=== PATIENT | male | born 1955 | race Caucasian/White ===

== ENCOUNTER 2016-10-18 18:11 | Emergency (ER) | payer MEDICARE, MEDICAID ==
[~2016-10-18] VITALS: Ht 180.3 cm; Wt 100.0 kg
[~2016-10-18 18:11] MED LIST: METH-313 PO; NAPR500T PO; TRAM50TA2 PO
[2016-10-18 18:17] VITALS: BP 161/106; PULSE 65; RESP 20; O2SAT 99
--- NOTE | 2016-10-18 18:49 | ED.REPORT ---
HPI-General Illness Date of Service October 18, 2016 ED Provider: Dorian Paige MD Patient is a 60 year old male with a history of chronic right leg pain, IV drug and Hepatitis B use who presents to the ED complaining of neck pain onset yesterday. Associated symptoms include right leg swelling. He denies shortness of breath. The patient reports that he is currently homeless. Nursing Notes Stated Complaint: SWOLLEN AND PAINFUL RIGHT LEG, NECK PAIN Chief Complaint: General Complaint Nursing Notes Reviewed: Yes Allergies: Coded Allergies: No Known Allergies (Verified , 10/18/16) Scheduled Methocarbamol (Robaxin-750) 750 Mg Tablet 1,500 MG PO QID Scheduled PRN Naproxen (Naprosyn) 500 Mg Tablet 500 MG PO BID PRN PRN For Pain Tramadol (Tramadol) 50 Mg Tablet 100 MG PO Q6H PRN PRN For Pain General Time Seen by MD: 18:49 Chief Complaint Other (neck pain) Hx Obtained From: Patient Arrived By: Walk-in Sudden in Onset?: Yes Onset Occurred: Yesterday Symptom Duration: Since onset Location: : Neck Recent Healthcare: No recent doctor visit, No recent hospitalization Similar Sx Previous: No Past Medical History Past Medical History TB hiatal hernia bipolar disorder hepatitis B Past Surgical History testicular surgery Family History Reviewed, not relevant Smoking History Current Every Day Smoker Social History Alcohol Use: Denies alcohol use Drug Use: IV drugs, Meth Other Social History: Homeless Ambulatory Status Independent Review of Systems Full Review of Systems Respiratory: Denies: Non-productive cough, Shortness of breath Musculoskeletal: Reports: Extremity pain (right leg), Extremity swelling (both legs), Neck pain Complete sys rev & neg: except as marked. Physical Exam Vital Signs Vital Signs Date Time Temp Pulse Resp B/P Pulse Ox O2 Delivery O2 Flow Rate FiO2 10/18/16 23:09 36.1 98 18 152/97 98 Room Air 10/18/16 18:17 36.4 65 20 161/106 99 Room Air Initial VS: Reviewed General/Constitutional: Well-developed, Well-nourished Head / Eyes: Atraumatic, Normocephalic ENT: Mucous membranes moist General/Constitutional: Awake, Alert Head / Eyes: Atraumatic, Normocephalic, PERRL, EOMI Pharynx / Tonsils / Uvula: Positive: Pharyngeal erythema (difficult to see his posterior oropharynx. There is mild erythema. No stridor, trismus or drooling) Neck: Full range of motion (generalized fullness to the anterior neck. No palpable mass.), No adenopathy tenderness of the posterior and anterior of the neck Respiratory / Chest: Atraumatic, Breath sounds NL, Breath sounds = bilat, No respiratory distress Cardiovascular: Heart rate NL, Regular rhythm, Heart sounds NL Abdomen: Atraumatic, Soft, Non-tender Back: Atraumatic, Full range of motion Upper Extremities Upper Extremity / MS: Atraumatic, Full range of motion LOWER EXTREMITIES: palpable but irregular pulses bilateral pedil edema, right more than left Skin: Atraumatic, Color NL, No rash, Warm, Dry Neurologic: Oriented X3, Speech NL, No motor deficits, No sensory deficits Psychiatric: Affect NL, Mood NL Interpretation & Diagnostics Interpretation & Diagnostics: SOFT TISSUE NECK CT: IMPRESSION: Bilateral, scattered shotty cervical, supraclavicular and superior mediastinal lymph nodes however no pathologic enlargement by size criteria. Recommend clinical correlation. Dictated by: Kody Moses M.D. on 10/18/2016 at 21:03 Approved by: Kody Moses M.D. on 10/18/2016 at 21:[address]: IMPRESSION: No evidence of deep venous thrombosis bilaterally. Dictated by: Kody Moses M.D. on 10/18/2016 at 21:35 Approved by: Kody Moses M.D. on 10/18/2016 at 21:36 Lab Results Interpretation Result Diagram: 10/18/16193710/18/161937 Test 10/18/16 19:38 10/18/16 19:48 White Blood Count 6.6th/mm3 (3.8-10.1) Red Blood Count 4.82mil/mm3 (4.40-5.80) Hemoglobin 14.8g/dL (13.8-17.2) Hematocrit 43.3% (41.0-50.0) Mean Corpuscular Volume 89.8fL (81-100) Mean Corpuscular Hemoglobin 30.7pg (27.0-35.0) Mean Corpuscular Hemoglobin Concent 34.2% (32.0-37.0) Red Cell Distribution Width 13.2% (12.3-15.4) Platelet Count 188bil/L (150-400) Neutrophils (%) (Auto) 64.0% (40-74) Lymphocytes (%) (Auto) 20.4% (14-46) Monocytes (%) (Auto) 10.2% (4-12) Eosinophils (%) (Auto) 4.6% (0-5) Basophils (%) (Auto) 0.6% (0-3) D-Dimer 2.14mg/L FEU (<0.50) Sodium Level 140mEq/L (134-144) Potassium Level 4.1mEq/L (3.5-5.2) Chloride Level 100mEq/L (97-108) Carbon Dioxide Level 27mmol/L (18-29) Blood Urea Nitrogen 13mg/dL (6-24) Creatinine 0.73mg/dL (0.76-1.27) Estimat Glomerular Filtration Rate 117mL/min (>59) Glucose Level 160mg/dL (60-99) Calcium Level 10.6mg/dL (8.5-10.1) Total Bilirubin 1.3mg/dL (0.0-1.2) Aspartate Amino Transf (AST/SGOT) 25U/L (0-50) Alanine Aminotransferase (ALT/SGPT) 33U/L (0-44) Alkaline Phosphatase 95U/L (25-150) C-Reactive Protein 0.9mg/dL (0.0-0.5) Pro-B-Type Natriuretic Peptide 1010pg/mL (0-210) Total Protein 7.2g/dL (6.4-8.4) Albumin 3.7g/dL (3.4-5.0) Hold Richards Top Tube Received (Received) Re-Eval/Medical Decision Med Decision/Clinical Course Soft tissue CT shows adenopathy. I will place him on Augmentin and referred ear nose and throat for close follow-up. I did warn him that infectious, inflammatory and malignancy lymphadenopathy is in the differential. Regarding the leg swelling DVT was ruled out. I recommended ALEKSANDRA salgado but he elevates his legs. I explained all of this to him and I provided him with some pain medication. He then told his nurse that he was going to leave here and overdosed the medicine until himself is not getting any help. I went back and asked exactly what he wants basically he tells me he wants be admitted for feeling depressed about being homeless and having chronic medical conditions. He is suicidal and voluntary. Is medically clear for mental health evaluation. Of course we do not have social workers at this hour. He will be observed in the emergency department on the morning and consult with social group worker. Time of Eval: 23:20 Re-Evaluation/Progress Note: The patient is now stating that he is suicidal because he is depressed about being homeless and wants to be admitted. Counseled Regarding: Diagnosis, Lab results, Need for follow-up, When/why to return to ED Discharge & Departure Shift Change Sign-Out Patient Care Transferred: Yes Discussed Complaint(s): Yes Laboratory Evaluation: Lab evaluation discussed Imaging Studies: Imaging discussed Primary Impression: Head and neck lymphadenopathy Additional Impressions: Edema Edema type: unspecified Qualified Code: R60.9 - Edema, unspecified Suicidal ideation Discharge Condition All VS Reviewed: Yes Condition: Stable Patient Instructions: Lymphadenopathy (GEN) Additional Instructions: Elevate your legs as much as possible. Wearing tight fitting socks will help with the swelling. The blood clot blood test was negative. The CAT scan of your neck does show that you has swollen lymph nodes in your neck. This may be related to an infection, inflammatory process or other more serious condition. It is important that you take the antibiotics twice daily for 7 days. I would like you to call the referral ear nose and throat surgeon on Thursday to set up a follow-up. Tell the office that you were seen in the emergency department. I also recommend that you will obtain a primary care physician for further evaluation. Referrals: Karlos Hanks MD [facility] Care Transferred to: Dr. Patricio Linn Care Transferred at: 02:00 Karma Attestation Portions of this note were transcribed by Teresa Galdamez. I, Dr. Paige personally performed the history, physical exam and medical decision-making; I reviewed and confirmed the accuracy of the information in the transcribed note. Signed by:Karma Guy, 10/19/16 at 0200 copies to: Karlos Hanks MD; [facility] Dorian Paige DO October 18, 2016 18:49 Ashley Galdamez October 18, 2016 19:16
[2016-10-18 19:54] LABS: BASOPHILS % (AUTO) 0.6 % (0-3); EOSINOPHILS % (AUTO) 4.6 % (0-5); MONOCYTES % (AUTO) 10.2 % (4-12); Mean Corpuscular Hemoglobin 30.7 pg (27.0-35.0); Mean Corpuscular Volume 89.8 fL (81-100); Platelet Count 188 bil/L (150-400)
--- NOTE | 2016-10-18 21:10 | DRSVH ---
PROCEDURE: CT NECK SOFT TISSUES WITH CONTRAST ([id number]) INDICATIONS: diffuse neck pain and swelling anterior neck TECHNIQUE: After the administration of intravenous contrast, 3.0 mm axial sections acquired from the sella to th e aortic arch. Additional oblique axial 3.0 mm sections acquired through the pharynx. 3 mm thick co mishel reformats were generated. For radiation dose reduction, the following was used: automated exp osure control. COMPARISON: None. FINDINGS: Image quality: Excellent. Lymph nodes: There are shotty bilateral cervical lymph nodes without oncologic enlargement. There al so shotty superior mediastinal and supraclavicular lymph nodes also without pathologic enlargement by size criteria measuring approximately 3-5 mm, and nonspecific. Vessels: Visualized vasculature appears patent. Neck spaces: The oropharynx, nasopharynx, and pharynx demonstrate no mucosal lesions. The vocal cor ds, false vocal cords, pyriform sinuses, epiglottis, vallecula, and tongue base all appear normal. E xtramucosal spaces appear unremarkable. Glands: The parotid and submandibular glands appear normal. Thyroid gland unremarkable. Miscellaneous: Visualized brain and orbits appear normal. Lung apices appear clear. Superficial so ft tissues appear normal. Bones: No suspicious bony lesions. Visualized sinuses and mastoids appear unremarkable. IMPRESSION: Bilateral, scattered shotty cervical, supraclavicular and superior mediastinal lymph nodes however no pathologic enlargement by size criteria. Recommend clinical correlation. Dictated by: Kody Moses M.D. on 10/18/2016 at 21:03 Approved by: Kody Moses M.D. on 10/18/2016 at 21:08
--- NOTE | 2016-10-18 21:37 | DRSVH ---
PROCEDURE: US VENOUS LEG DUPLEX BILATERAL INDICATIONS: bilateral leg swelling, pain, elevated ddimer TECHNIQUE: Real-time imaging, as well as color and pulse Doppler interrogation, were performed of the deep veins of both legs from the inguinal ligament to the popliteal fossa. COMPARISON: None. FINDINGS: The deep veins are normally compressible, and free of intraluminal thrombus. Color and pu lse Doppler demonstrate normal phasic intravascular flow. There is normal augmentation response to d istal compression maneuver. IMPRESSION: No evidence of deep venous thrombosis bilaterally. Dictated by: Kody Moses M.D. on 10/18/2016 at 21:35 Approved by: Kody Moses M.D. on 10/18/2016 at 21:36
[2016-10-18] MEDS ORDERED: Amoxicillin-Clav 875-125 mg Tablet PO ONE (21:50)
[2016-10-18] MEDS ORDERED: _HYDROcodone/APAP 5-325 mg Tablet PO PRN (21:50)
[2016-10-18 23:09] VITALS: BP 152/97; PULSE 98; RESP 18; O2SAT 98
[2016-10-19] MEDS ORDERED: HYDROcodone-APAP 5-325 mg Tablet PO ONE
[2016-10-19 03:59] VITALS: PULSE 78; RESP 18; O2SAT 98
[2016-10-19 05:24] VITALS: BP 153/92; PULSE 71; RESP 18; O2SAT 99
[2016-10-19 09:34] VITALS: BP 151/107; PULSE 81; RESP 16; O2SAT 98
[2016-10-19 13:45] VITALS: BP 170/102; PULSE 74; RESP 16; O2SAT 99
[2016-10-19] MEDS ORDERED: Amoxicillin-Clav 875-125 mg Tablet PO ONE (13:50)
== END 2016-10-19 15:30 | disposition home or self-care (01) ==
LOC: SED 18:11
DX: I10 Essential (primary) hypertension (principal); R59.1 Generalized enlarged lymph nodes; R60.0 Localized edema; R45.851 Suicidal ideations; F31.9 Bipolar disorder, unspecified; F17.200 Nicotine dependence, unspecified, uncomplicated; Z59.0 Homelessness
CPT/HCPCS: 36415; 70491; 80053; 81002; 82075; 83880; 85025; 85378; 86140; 93970; 99284; G0480; Q9967